=== PATIENT | female | born 1960 | race Caucasian/White ===

== ENCOUNTER 2017-05-16 10:05 | Emergency (ER) | payer SELFPAY ==
[~2017-05-16] VITALS: Ht 149.9 cm; Wt 41.3 kg
[2017-05-16 10:15] VITALS: BP 173/99; PULSE 83; RESP 18; TEMP 98; O2SAT 96
--- NOTE | 2017-05-16 11:55 | PD ---
HPI Chief Complaint: Cold / Flu Symptoms Time Seen by Provider: 11:47 Travel History International Travel<30 days: No Contact w/Intl Traveler<30days: No Traveled to known affect area: No History of Present Illness HPI 56-year-old female presents to the emergency department with body aches, cough and subjective fever for 1-1/2 weeks. States that the cough is occasionally productive with green to white sputum. States she did have an episode of nausea yesterday without vomiting. States that she has taken multiple nvba-xce-[id number] medications without relief from the body aches. Denies fever, chills, shortness of breath, chest pain, vomiting or diarrhea, abdominal pain. She is a smoker. PFSH Past Medical History Cancer: Yes (uterus, r breast, r hip) Chemotherapy: Yes (hx of) Diminished Hearing: No Respiratory: Yes (CHRONIC BRONCHITIS, PE) Tetanus Vaccination: Unknown Influenza Vaccination: No ?: Not Past Surgical History Hysterectomy: Yes Other Surgery: Yes (right lumpectomy) Social History Alcohol Use: Yes (1-2/night) Tobacco Use: Yes (1/2ppd) Allergies-Medications (Allergen,Severity, Reaction): Coded Allergies: Penicillins (Verified Allergy, Intermediate, HIVES, EDEMA, 05/16/17) Sulfa (Sulfonamide Antibiotics) (Verified Allergy, Intermediate, HIVES, FEVER, , 05/16/17) Reported Meds & Prescriptions Reported Meds & Active Scripts Active Ventolin Hfa 18 GM Inh (Albuterol Sulfate) 90 Mcg/Act Aer 2 Puff INH Q4-6H PRN Azithromycin 250 Mg Tab 250 Mg PO DAILY 5 Days Take 2 tablets day 1. Then 1 tab daily for 4 days. Review of Systems Except as stated in HPI: all other systems reviewed are Neg Physical Exam Narrative GENERAL: Well-developed, thin appearing older than stated age SKIN: Focused skin assessment warm/dry. HEAD: Atraumatic. Normocephalic. EYES: Pupils equal and round. No scleral icterus. No injection or drainage. ENT: No nasal bleeding or discharge. Mucous membranes pink and moist. Tympanic membranes bulging bilateral with air-fluid level NECK: Trachea midline. No JVD. Mild anterior cervical lymphadenopathy CARDIOVASCULAR: Regular rate and rhythm. No murmur appreciated. RESPIRATORY: No accessory muscle use. Clear to auscultation. Breath sounds equal bilaterally. Diffuse Faint rhonchi bilateral. GASTROINTESTINAL: Abdomen soft, non-tender, nondistended. MUSCULOSKELETAL: No obvious deformities. No clubbing. No cyanosis. No edema. No CVA tenderness. NEUROLOGICAL: Awake and alert. No obvious cranial nerve deficits. Motor grossly within normal limits. Normal speech. PSYCHIATRIC: Appropriate mood and affect; insight and judgment normal. Data Data Last Documented VS Vital Signs Date Time Temp Pulse Resp B/P (MAP) Pulse Ox O2 Delivery O2 Flow Rate FiO2 05/16/17 10:15 98.0 83 18 173/99 (123) 96 Orders Orders Chest, Single Ap (05/16/17 ) Ed Discharge Order (05/16/17 12:43) MDM Medical Decision Making Medical Screen Exam Complete: Yes Emergency Medical Condition: Yes Differential Diagnosis Allergic rhinitis versus pneumonia versus viral syndrome acute bronchtis Narrative Course 56-year-old female presents to the emergency department with productive Cough, body aches, and congestion for 1.5 weeks. States that she has had a productive cough with white and green sputum. She has tried multiple budr-det-yszqmhv medications without relief for her bodyaches or cough. She denies fever, chills , chest pain, shortness of breath, vomiting, diarrhea, abdominal pain. She is a smoker and states she is trying to quit smoking. Physical exam demonstrates lungs diffuse faint rhonchi. CXR without acute process. H&P consistent with acute bronchitis. After discussion of the chest x-ray patient states that she has a "touch" of emphysema. Because of the smoker status, duration, and age, will Rx antibiotics and inhaler. Advised patient to return to ER if signs symptoms persist or worsen. Diagnosis Primary Impression: Acute bronchitis Qualified Codes: J20.9 - Acute bronchitis, unspecified Referrals: [facility] Primary Care Physician Additional Instructions: Follow-up with a primary care physician Medications as prescribed Scripts Albuterol 18 GM Inh (Ventolin Hfa 18 GM Inh) 90 Mcg/Act Aer 2 PUFF INH Q4-6H Y for SHORTNESS OF BREATH, #1 INHALER 0 Refills Prov: Sarwat Gonzalez MD 05/16/17 Azithromycin (Azithromycin) 250 Mg Tab 250 MG PO DAILY for Infection for 5 Days, #6 TAB 0 Refills Take 2 tablets day 1. Then 1 tab daily for 4 days. Prov: Sarwat Gonzalez MD 05/16/17 Disposition: 01 DISCHARGE HOME Condition: Stable Meli Shukla May 16, 2017 11:55
[2017-05-16] MEDS ORDERED: AZIT250T3 PO (11:57)
--- NOTE | 2017-05-16 12:29 | RADRPT ---
EXAM DATE/TIME: 05/16/2017 12:20 [place] COMPARISON: No previous studies available for comparison. INDICATIONS : Cough x 1 week. MEDICAL HISTORY : Carcinoma, breast. Uterine CA. Chronic bronchitis. Smoker.PE. Chemotherapy. SURGICAL HISTORY : Hysterectomy. Right lupectomy. Breast implants. ENCOUNTER: Initial ACUITY: 1 week PAIN SCORE: 8/10 LOCATION: chest FINDINGS: Lungs are slightly hyperaerated with mild interstitial prominence and apparent biapical bullous hernandez e. No focal pleural or parenchymal opacities. Cardiomediastinal contours are within normal limits. Joe ny thorax is intact. CONCLUSION: 1. Changes of obstructive bony disease. 2. No acute abnormality. Luis Manuel Lemons MD on May 16, 2017 at 12:27 Board Certified Radiologist. This report was verified electronically.
[2017-05-16] MEDS ORDERED: VENTAER INH (12:48)
== END 2017-05-16 13:19 | disposition home or self-care (01) ==
LOC: PHED 10:05 → PHEFT 13:19
DX: J20.9 Acute bronchitis, unspecified (principal); R11.0 Nausea; Z72.0 Tobacco use
CPT/HCPCS: 71010; 99284